=== PATIENT | male | born 1940 | race Caucasian/White ===

== ENCOUNTER 2020-07-22 09:56 | Observation (INO) | payer MEDICARE ==
[~2020-07-22] VITALS: Ht 175.3 cm; Wt 84.1 kg
[2020-07-22] MEDS ORDERED: CLOPIDOGREL 75 MG TABLET PO ONE (10:30)
[2020-07-22] MEDS ORDERED: PLEASE ENTER HEIGHT AND WEIGHT MC SCH (10:30)
[2020-07-22] MEDS ORDERED: SODIUM CHLORIDE 0.9% 1,000 ML IV SCH (10:30)
[2020-07-22] MEDS ORDERED: OMEG-170 PO (10:37)
[2020-07-22] MEDS ORDERED: VENL75TA PO (10:37)
[2020-07-22] MEDS ORDERED: ATEN50TA41 PO (10:37)
[2020-07-22] MEDS ORDERED: MULT-658 PO (10:37)
[2020-07-22] MEDS ORDERED: SIMV20TA19 PO (10:37)
[2020-07-22] MEDS ORDERED: GINK120C PO (10:37)
[2020-07-22] MEDS ORDERED: TAMS-11 PO (10:37)
[2020-07-22] MEDS ORDERED: CALCIUM PO (10:37)
[2020-07-22 10:39] VITALS: BP 137/88
[2020-07-22 11:25] LABS: ALANINE AMINOTRANSFERASE 27 U/L (12-78); ALBUMIN 3.5 g/dL (3.4-5.0); ANION GAP 6 mmol/L (5-15); CALCIUM 9.4 mg/dL (8.5-10.1); CHLORIDE 113 mmol/L (98-107)
[2020-07-22 11:28] LABS: ALKALINE PHOSPHATASE 47 U/L (45-117); BILIRUBIN,TOTAL 0.9 mg/dL (0.2-1.0); CREATININE 0.93 mg/dL (0.7-1.3); TOTAL PROTEIN 6.7 g/dL (6.4-8.2)
[2020-07-22] MEDS ORDERED: FENTANYL PF 100 MCG/2ML ONE (11:40)
[2020-07-22] MEDS ORDERED: VERAPAMIL 2.5 MG/ML, 2ML ONE ×2 (11:40→13:14)
[2020-07-22] MEDS ORDERED: TICAGRELOR 90 MG TABLET ONE (11:40)
[2020-07-22] MEDS ORDERED: MIDAZOLAM 1 MG/ML, 5ML ONE (11:40)
[2020-07-22] MEDS ORDERED: HEPARIN 1,000 UNITS/ML, 10ML ONE (11:41)
[2020-07-22] MEDS ORDERED: BIVALIRUDIN 250 MG ONE ×2 (11:41→13:37)
[2020-07-22] MEDS ORDERED: LIDOCAINE 2%, 20ML ONE (11:41)
[2020-07-22] MEDS ORDERED: NITROGLYCERIN 30 MCG/ML, 20ML VIAL ONE (13:16)
[2020-07-22] MEDS ORDERED: NITROGLYCERIN/D5W PMX 250 ML ONE (13:22)
[2020-07-22] MEDS: SODIUM CHLORIDE 0.9% 1,000 ML IV SCH ×2 (14:30→22:30)
[2020-07-22 14:59] VITALS: BP 169/95
[2020-07-22 15:16] VITALS: BP 152/86
[2020-07-22 18:45] VITALS: BP 128/79
[2020-07-22] MEDS: TICAGRELOR 90 MG TABLET PO SCH (20:18)
[2020-07-22] MEDS ORDERED: ATORVASTATIN 40 MG TABLET PO SCH (21:00)
[2020-07-23 01:13] VITALS: BP 110/64
[2020-07-23 04:29] LABS: ANION GAP 5 mmol/L (5-15); CALCIUM 9.1 mg/dL (8.5-10.1); CHLORIDE 110 mmol/L (98-107)
[2020-07-23] MEDS: SODIUM CHLORIDE 0.9% 1,000 ML IV SCH (06:30)
[2020-07-23 06:34] VITALS: BP 147/89
[2020-07-23] MEDS ORDERED: MULTIVITAMIN 1 TABLET PO SCH (09:00)
[2020-07-23] MEDS ORDERED: TAMSULOSIN 0.4 MG CAP.ER.24H PO SCH (09:00)
[2020-07-23] MEDS ORDERED: ASPIRIN 81 MG TABLET EC PO SCH (09:00)
[2020-07-23] MEDS ORDERED: ISOSORBIDE MONONITRATE ER 30 MG TABLET PO SCH (09:00)
[2020-07-23] MEDS ORDERED: ATENOLOL 50 MG TABLET PO SCH (09:00)
[2020-07-23] MEDS ORDERED: VENLAFAXINE 75MG TABLET PO SCH (09:00)
[2020-07-23] MEDS ORDERED: ASPI81TA45 PO (09:34)
[2020-07-23] MEDS ORDERED: TICA90TA PO (09:34)
[2020-07-23] MEDS ORDERED: ATOR40TA78 PO (09:34)
[2020-07-23] MEDS: TICAGRELOR 90 MG TABLET PO SCH (09:38)
[2020-07-23 09:45] VITALS: BP 157/97
== END 2020-07-23 11:47 | disposition home or self-care (01) ==
LOC: CACL 09:56 → 5SO 14:09 → CACL 14:39
PROVIDERS: ADMIT Internal Medicine Cardiovascular Disease; ATTEND Internal Medicine Cardiovascular Disease
DX: I25.119 Atherosclerotic heart disease of native coronary artery with unspecified angina pectoris (principal); E78.5 Hyperlipidemia, unspecified; I10 Essential (primary) hypertension; F10.10 Alcohol abuse, uncomplicated; Z87.891 Personal history of nicotine dependence; Z79.899 Other long term (current) drug therapy
CPT/HCPCS: 36415; 80048; 80053; 85014; 85018; 92933; 93458; 99156; 99157; C1724; C1725; C1769; C1874; C1887; C1894; G0378; J0583; J1644; J2250; J3010; J3490; Q9967